=== PATIENT | male | born 1990 | race Caucasian/White ===

== ENCOUNTER 2021-02-25 14:29 | Emergency (ER) | payer MEDICAID, SELFPAY ==
[2021-02-25 14:31] VITALS: BP 148/96; PULSE 103; RESP 16; TEMP 36.6; O2SAT 98; BMI 21.2
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
--- NOTE | 2021-02-25 15:54 | PC.NURSE ---
placed wrist splint on pt
[2021-02-25 16:09] VITALS: BP 110/78; PULSE 65; RESP 16; TEMP 36.6; O2SAT 98
== END 2021-02-25 16:22 | disposition home or self-care (01) ==
PROVIDERS: Emergency Provider Internal Medicine; PCP Family Medicine
DX: S52.502A Unspecified fracture of the lower end of left radius, initial encounter for closed fracture (principal); S52.612A Displaced fracture of left ulna styloid process, initial encounter for closed fracture; V47.0XXA Car driver injured in collision with fixed or stationary object in nontraffic accident, initial encounter; Y92.488 Other paved roadways as the place of occurrence of the external cause
CPT/HCPCS: 73090; 73110; 99282

== ENCOUNTER → 2021-02-28 14:23 | Outpatient (CLI) | payer MEDICAID, SELFPAY ==
--- NOTE | 2021-02-28 14:29 | XR_ITS ---
PROCEDURE: XR WRIST LT MIN 3V CLINICAL INDICATION: LEFT WRIST FX Follow-up fracture COMPARISON: CR XR WRIST LT MIN 3V from 02/25/2021 FINDINGS: Cast is in place. There is good alignment of the distal radial fracture and ulnar styloid fracture. The joint spaces are well-preserved. No significant degenerative/arthritic changes. No erosive changes evident. Other findings:None. IMPRESSION: Good alignment status post closed reduction distal radial and ulnar fractures. Dictated by: Joaquin Triana MD 02/28/2021 14:53 Joaquin Triana MD in [place] 02/28/2021 14:53
== END ==
PROVIDERS: PCP Family Medicine; Visit Provider Orthopaedic Surgery
DX: S62.102A Fracture of unspecified carpal bone, left wrist, initial encounter for closed fracture (principal)
CPT/HCPCS: 73110

== ENCOUNTER → 2021-03-07 14:05 | Outpatient (CLI) | payer MEDICAID, SELFPAY ==
--- NOTE | 2021-03-07 14:10 | XR_ITS ---
PROCEDURE: XR WRIST LT MIN 3V CLINICAL INDICATION: left wrist fx; in cast Follow-up fracture COMPARISON: CR XR WRIST LT MIN 3V from 02/25/2021 CR XR WRIST LT MIN 3V from 02/28/2021 FINDINGS: Study is obtained through a cast. Nondisplaced fracture of the distal radius with extension into the articular surface and associated avulsion of the ulnar styloid is once again noted unchanged. IMPRESSION: No change nondisplaced distal radial and ulnar fractures Dictated by: Joaquin Triana MD 03/07/2021 14:28 Joaquin Triana MD in [place] 03/07/2021 14:28
== END ==
PROVIDERS: Visit Provider Orthopaedic Surgery
DX: S62.102A Fracture of unspecified carpal bone, left wrist, initial encounter for closed fracture (principal)
CPT/HCPCS: 73110

== ENCOUNTER 2021-04-17 13:58 | Emergency (ER) | payer MEDICAID, SELFPAY ==
[2021-04-17 14:07] VITALS: BP 122/78; PULSE 66; RESP 14; TEMP 36.9; O2SAT 97; BMI 20.3
[2021-04-17 14:33] LABS: UTC Strep Screen (Rapid) Positive (Negative)
[2021-04-17 14:51] VITALS: BP 122/78; PULSE 66; RESP 14; TEMP 36.9
--- NOTE | 2021-04-17 15:09 | HMH.EDUTC ---
[facility] [place] Disposition Clinical Impression: Strep throat Disposition: Home, Self-Care Condition on Discharge: Good Instructions: Strep Throat, DI for Strep Throat Additional Instructions: Drink plenty of fluids. Take tylenol or ibuprofen for pain or fever. Take the medications as directed. Follow up with your regular doctor. GO TO THE ER FOR ANY WORSENING SYMPTOMS Throw your tooth brush away and get a new one. Prescriptions: Amoxicillin [Amoxicillin 500mg Tab] 500 mg PO TID 10 Days #30 tab Transmission Status: Received by [id number] Referrals: Provider,Referral, [Primary Care Provider] - Forms: Work/School Release Time of Disposition: 15:10 Medical Decision Making - Medical Records Medical records reviewed: No: I reviewed the patient's medical records. - Jace Inquiry Pt receiving controlled substance: No Vital Signs: 04/17/21 14:07 04/17/21 14:51 Temperature 98.5 F 98.5 F Temperature Source Oral Pulse Rate 66 Pulse Rate [Left] 66 Respiratory Rate 14 14 Blood Pressure 122/78 Blood Pressure [Right Arm] 122/78 Blood Pressure Mean [Right Arm] 92 02 Sat by Pulse Oximetry 97 - Lab Data Lab results reviewed: Yes: I reviewed the patient's lab results. Lab Results 04/17/21 14:18: Strep Scn Rapid Clinic Positive A [facility] HPI - General Stated complaint: strep test Time Seen by Provider: 04/17/21 14:15 Mode of Arrival: Ambulatory Source of Information: Patient Limitations: No Limitations Description of Symptoms (Recalled from Triage Doc. by RN): pt c/o of a stomach ache. pt wants tested for strep. HEENT Symptoms (Recalled from RN notes): No Resp Symptoms (Recalled from RN notes): No Skin Symptoms (Recalled from RN notes): No MS Symptoms (Recalled from RN notes): No Functional Status (Recalled from RN notes): na - History of Present Illness Provider Complaint: He has had a sore throat since this morning. He has been exposed to covid. - Related Data Home Medications Medication Instructions Recorded Confirmed methadone 40 mg soluble tablet 40 mg PO Q12H tab 03/22/21 03/22/21 Previous Rx's Medication Instructions Recorded sildenafil (pulm.hypertension) 20 20 mg PO .prn #30 tab 03/27/21 mg tablet Amoxicillin [Amoxicillin 500mg Tab] 500 mg PO TID 10 Days #30 tab 04/17/21 Allergies Allergy/AdvReac Type Severity Reaction Status Date / Time ziprasidone [From Janel] Allergy Verified 03/22/21 14:20 - Worker's Comp Is this a Worker's Comp case?: No [facility] History - Hepatitis A Screen Drug use history?: No High risk sexual behaviors?: No History of sexually transmitted infection?: No Currently employed?: No Childcare worker?: No Do you have indoor plumbing?: Yes Do you have electricity?: Yes Attestation statement:: This patient has been screened for Hepatitis A risk factors. I have reviewed the patient's past medical history: Yes Laterality Cases: Left: Arthroscopy Shoulder Other Surgeries: Yes: No Previous Surgery, Appendectomy Amputation: No Fractures: Yes - Social History Smoking Status: Current some day smoker Alcohol Intake: former Alcohol Intake Frequency:: holidays/special occasions only Substance Use Type: former substance user Occupational Status: unemployed Housing: house Household Members: significant other, children Family Hx:: No significant family history ROS Obtained: Yes All systems reviewed & no additional complaints - Constitutional Constitutional: Reports chills, Denies fever(s), Reports poor appetite, Reports malaise - Eyes Eyes: Denies eye discharge - ENT Ears, Nose, Mouth, and Throat: Reports as per HPI - Cardiovascular Cardiovascular: Denies chest pain - Respiratory Respiratory: Reports as per HPI Physical Exam - General General appearance: alert, in no apparent distress - Head Head exam: atraumatic, normocephalic, normal inspection - Eye Eye exam: Present: normal appearance,
== END 2021-04-17 15:20 | disposition home or self-care (01) ==
PROVIDERS: Emergency Provider Nurse Practitioner Family
DX: J02.0 Streptococcal pharyngitis (principal)
CPT/HCPCS: 87880; 99202; G0463

== ENCOUNTER 2021-04-23 19:56 | Emergency (ER) | payer MEDICAID, SELFPAY ==
[2021-04-23 19:59] VITALS: BP 175/99; RESP 18; TEMP 36.8; O2SAT 98; BMI 21.4
--- NOTE | 2021-04-23 20:00 | PC.NURSE ---
removed from room as she was screaming and hollering at the bedside making matters worse. pt is agitated and hysterical in presentation. sent to lobby.
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
[2021-04-23 20:04] VITALS: BMI 20.9
--- NOTE | 2021-04-23 20:14 | PC.NURSE ---
Dr. Warren paged
--- NOTE | 2021-04-23 20:20 | PC.NURSE ---
pd at bedside
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
--- NOTE | 2021-04-23 22:19 | PC.NURSE ---
pt left before recieivng his discharge paperwork or sling told to follow up andrea bruan friday
[2021-04-23 22:20] VITALS: BP 135/77; PULSE 101; RESP 20; TEMP 37.2; O2SAT 99
== END 2021-04-23 22:26 | disposition home or self-care (01) ==
PROVIDERS: Emergency Provider Emergency Medicine
DX: S51.812A Laceration without foreign body of left forearm, initial encounter (principal); X99.1XXA Assault by knife, initial encounter; Y92.019 Unspecified place in single-family (private) house as the place of occurrence of the external cause
CPT/HCPCS: 12032; 73090; 96365; 96375; 99282

== ENCOUNTER 2021-07-10 13:16 | Emergency (ER) | payer MEDICAID, SELFPAY ==
--- NOTE | 2021-07-10 17:28 | PC.NURSE ---
called admissions to assign room. pt had left without being seen. admissions contacted the pt and he stated he was going to go to his pcp in the morning.
[2021-07-10 17:30] VITALS: BP 0/0; PULSE 0; RESP 0; TEMP -17.7; TEMP 0; O2SAT 0
== END 2021-07-10 17:31 | disposition home or self-care (01) ==
PROVIDERS: Emergency Provider Emergency Medicine
DX: Z53.21 Procedure and treatment not carried out due to patient leaving prior to being seen by health care provider (principal)
CPT/HCPCS: 99211

== ENCOUNTER 2021-09-23 14:24 | Emergency (ER) | payer MEDICAID, SELFPAY ==
[2021-09-23 14:38] VITALS: BP 124/86; PULSE 99; RESP 16; TEMP 37; O2SAT 100; BMI 20.3
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
[2021-09-23 16:56] VITALS: BP 124/86; PULSE 99; RESP 16; TEMP 37
== END 2021-09-23 17:17 | disposition home or self-care (01) ==
PROVIDERS: Emergency Provider Nurse Practitioner Family; PCP Family Medicine
DX: S60.221A Contusion of right hand, initial encounter (principal); W20.8XXA Other cause of strike by thrown, projected or falling object, initial encounter; Y92.019 Unspecified place in single-family (private) house as the place of occurrence of the external cause
CPT/HCPCS: 73110; 73130; 96372; 99202; G0463; J0696